=== PATIENT | male | born 1950 | race Caucasian/White ===

== ENCOUNTER → 2019-12-27 | Outpatient (CLI) | payer OTHER ==
[2019-12-27 15:29] LABS: Basophils # (auto) 0 10 ^3/uL (0-0.2); Basophils % (auto) 0.6 % (0.0-2.0); Eosinophils # (auto) 0.1 10 ^3/uL (0-0.8); Eosinophils % (auto) 1.8 % (0.0-7.0); Hematocrit 44.4 % (41.0-53.0); Lymphocytes # (auto) 1.1 10 ^3/uL (0.4-5.4); Lymphocytes % (auto) 23.9 % (10.0-50.0); Mean Corpuscular Hemoglobin 39.3 pg (28.0-32.0); Mean Corpuscular Hgb Conc. 33.9 g/dL (32.0-36.0); Mean Corpuscular Volume 115.9 fL (80.0-100.0); Monocytes # (auto) 0.5 10 ^3/uL (0-1.3); Monocytes % (auto) 10.4 % (0.0-12.0); Neutrophils # (auto) 2.8 10 ^3/uL (1.6-8.6); Neutrophils % (auto) 63.3 % (37.0-80.0); Nucleated Red Blood Cells % 0.2 %; Platelet Count (auto) 167 10^3/uL (140-450); Red Blood Cells 3.83 10^6/uL (4.5-5.90); Red Cell Distribution Width 14.1 % (11.8-14.3); White Blood Cell 4.5 10^3/uL (4.4-10.8)
[2019-12-27 15:48] LABS: Albumin 3.6 g/dL (3.4-5.0); Calcium 9.5 mg/dL (8.5-10.1); Potassium 3.9 mmol/L (3.5-5.1)
[2019-12-27 15:52] LABS: BUN/Creatinine Ratio 10.6; Bilirubin, Total 0.9 mg/dL (0.2-1.0); Total Protein 7.7 g/dL (6.4-8.2)
== END | disposition home or self-care (01) ==
LOC: EDSEX 14:40 → LAB 14:40
PROVIDERS: ATTEND Internal Medicine
DX: Z12.11 Encounter for screening for malignant neoplasm of colon (principal); I10 Essential (primary) hypertension; R60.9 Edema, unspecified; Z12.5 Encounter for screening for malignant neoplasm of prostate
CPT/HCPCS: 36415; 80053; 80061; 83036; 83880; 84153; 85025

== ENCOUNTER → 2020-01-13 | Outpatient (CLI) | payer OTHER ==
[2020-01-16 09:54] LABS: Hepatitis A Ab IgM Negative; Hepatitis B Core IgM Negative; Hepatitis B Surface Antigen Negative (Negative)
[2020-01-16 09:55] LABS: Hepatitis C Antibody Negative (Negative)
== END | disposition home or self-care (01) ==
LOC: LAB 11:26
PROVIDERS: ATTEND Internal Medicine
DX: R94.5 Abnormal results of liver function studies (principal)
CPT/HCPCS: 36415; 80074

== ENCOUNTER → 2020-05-24 | Outpatient (CLI) | payer OTHER ==
[2020-05-24 13:16] LABS: Basophils # (auto) 0 10 ^3/uL (0-0.2); Basophils % (auto) 0.6 % (0.0-2.0); Eosinophils # (auto) 0.1 10 ^3/uL (0-0.8); Eosinophils % (auto) 2.4 % (0.0-7.0); Hematocrit 41.8 % (41.0-53.0); Hemoglobin 14.2 g/dL (13.5-17.5); Lymphocytes # (auto) 1.1 10 ^3/uL (0.4-5.4); Mean Corpuscular Hemoglobin 31.6 pg (28.0-32.0); Mean Corpuscular Hgb Conc. 33.9 g/dL (32.0-36.0); Mean Corpuscular Volume 93.5 fL (80.0-100.0); Monocytes # (auto) 0.4 10 ^3/uL (0-1.3); Monocytes % (auto) 7.4 % (0.0-12.0); Neutrophils # (auto) 4.1 10 ^3/uL (1.6-8.6); Neutrophils % (auto) 70.6 % (37.0-80.0); Platelet Count (auto) 301 10^3/uL (140-450); Red Blood Cells 4.48 10^6/uL (4.5-5.90); Red Cell Distribution Width 13.7 % (11.8-14.3); White Blood Cell 5.8 10^3/uL (4.4-10.8)
[2020-05-24 13:18] LABS: Urine Blood Negative /uL (Negative); Urine Specific Gravity 1.021 (1.001-1.035)
[2020-05-24 13:38] LABS: INR 0.96 (0.9-1.15); Partial Thromboplastin Time 24.8 sec (23.64-32.05)
[2020-05-24 13:43] LABS: Albumin 3.4 g/dL (3.4-5.0); Calcium 8.8 mg/dL (8.5-10.1); Potassium 3.6 mmol/L (3.5-5.1)
[2020-05-24 13:48] LABS: BUN/Creatinine Ratio 10.2; Bilirubin, Total 0.4 mg/dL (0.2-1.0); Total Protein 7.1 g/dL (6.4-8.2)
== END | disposition home or self-care (01) ==
LOC: LAB 13:04
PROVIDERS: ATTEND Internal Medicine
DX: Z01.818 Encounter for other preprocedural examination (principal); I10 Essential (primary) hypertension; E78.5 Hyperlipidemia, unspecified
CPT/HCPCS: 36415; 80053; 81003; 85025; 85610; 85730

== ENCOUNTER → 2020-08-23 | Outpatient (CLI) | payer OTHER | END | disposition home or self-care (01) | LOC: XYW 09:50 | PROVIDERS: ATTEND Internal Medicine | DX: I07.1 Rheumatic tricuspid insufficiency (principal); I10 Essential (primary) hypertension | CPT/HCPCS: 93306 ==

== ENCOUNTER 2023-09-25 23:38 | Inpatient (IN) | payer OTHER ==
[~2023-09-25] VITALS: Ht 175.3 cm; Wt 78.5 kg
[2023-09-26] VITALS (17 sets, daily range): BP systolic 108–144; BP diastolic 61–90; PULSE 62–91; RESP 12–20; TEMP 96–97.8; O2SAT 92–99
[2023-09-26] MEDS ORDERED: D5W/SOD CHLO 0.9% 1,000 ML IV SCH (06:00)
[2023-09-26 06:22] LABS: Basophils # (auto) 0 10 ^3/uL (0-0.2); Eosinophils # (auto) 0.1 10 ^3/uL (0-0.8); Lymphocytes # (auto) 0.6 10 ^3/uL (0.4-5.4); Mean Corpuscular Volume 107.4 fL (80.0-100.0); Monocytes # (auto) 0.4 10 ^3/uL (0-1.3); Neutrophils # (auto) 4.1 10 ^3/uL (1.6-8.6); Red Cell Distribution Width 14.3 % (11.8-14.3); White Blood Cell 5.2 10^3/uL (4.4-10.8)
[2023-09-26 06:25] LABS: Basophils % (auto) 0.5 % (0.0-2.0); Eosinophils % (auto) 1.8 % (0.0-7.0); Hematocrit 40.7 % (41.0-53.0); Hemoglobin 13.4 g/dL (13.5-17.5); Lymphocytes % (auto) 11.7 % (10.0-50.0); Mean Corpuscular Hemoglobin 35.3 pg (28.0-32.0); Mean Corpuscular Hgb Conc. 32.9 g/dL (32.0-36.0); Monocytes % (auto) 8.5 % (0.0-12.0); Neutrophils % (auto) 77.5 % (37.0-80.0); Nucleated Red Blood Cells % 0.1 %; Red Blood Cells 3.79 10^6/uL (4.5-5.90)
[2023-09-26 06:41] LABS: INR 1.07 (0.9-1.15); Partial Thromboplastin Time 28.5 SEC (24.5-34.5); Prothrombin Time 11.2 sec (9.3-11.8)
[2023-09-26 06:49] LABS: Alanine Aminotransferase 26 U/L (7-40); Albumin 3.7 g/dL (3.2-4.8); Alkaline Phosphatase 78 U/L (46-116); Anion Gap 13 (5-15); Aspartate Aminotransferase 49 U/L (13-40); BUN/Creatinine Ratio 8.5 (10.0-20.0); Bilirubin, Total 1.5 mg/dL (0.2-1.0); Blood Urea Nitrogen 12 mg/dL (9-23); Calcium 8.8 mg/dL (8.7-10.4); Carbon Dioxide 20 mmol/L (20-30); Chloride 108 mmol/L (98-107); Glucose 108 mg/dL (74-106); Magnesium 2.2 mg/dL (1.6-2.6); Potassium 3.6 mmol/L (3.5-5.1); Sodium 141 mmol/L (136-145); Total Protein 5.9 g/dL (5.7-8.2)
[2023-09-26] MEDS ORDERED: MORPHINE SULFATE INJ 2 MG/ml SYRG IV PRN (07:30)
[2023-09-26] MEDS ORDERED: SOD CHL 0.45% 1,000 ML IV SCH (07:30)
[2023-09-26] MEDS ORDERED: ONDANSETRON HCL 4 MG/2 ML VIAL IV PRN (07:30)
[2023-09-26] MEDS ORDERED: ACETAMINOPHEN 325 MG TAB PO PRN (07:30)
[2023-09-26] MEDS ORDERED: NITROGLYCERIN 0.4 MG SL TAB SL PRN (07:30)
[2023-09-26] MEDS ORDERED: DOCUSATE SOD 100 MG CAP PO PRN (07:30)
[2023-09-26] MEDS: OCTREOTIDE ACETATE 500 MCG in SODIUM CHL 0.9% 99 ML IV SCH ×2 (09:08→15:28)
[2023-09-26] MEDS: PANTOPRAZOLE 40mg/50ML NS AE 50 ML IV SCH ×4 (10:10→20:43)
[2023-09-26] MEDS: SODIUM CHLORIDE 0.9% 1,000 ML IV SCH (14:20)
[2023-09-26] MEDS: chlordiazePOXIDE HCL 25 MG CAP PO SCH ×2 (14:20→21:22)
[2023-09-26 16:22] LABS: Amphetamine Screen, Urine Pos (NEGATIVE); Barbiturate Scree,Urine Neg (NEGATIVE); Benzodiazephine Screen, Urine Neg (NEGATIVE); Cannabinoid Screen, Urine Neg (NEGATIVE); Cocaine Screen, Urine Neg (NEGATIVE); Opiate Scree,Urine Neg (NEGATIVE); Phencyclidine Screen, Urine Neg (NEGATIVE)
[2023-09-27] MEDS: SODIUM CHLORIDE 0.9% 1,000 ML IV SCH ×3 (00:15→22:26)
[2023-09-27] MEDS: PANTOPRAZOLE 40mg/50ML NS AE 50 ML IV SCH ×5 (01:55→22:25)
[2023-09-27] MEDS: OCTREOTIDE ACETATE 500 MCG in SODIUM CHL 0.9% 99 ML IV SCH ×3 (01:56→22:25)
[2023-09-27] MEDS: chlordiazePOXIDE HCL 25 MG CAP PO SCH (06:25)
[2023-09-27 07:54] LABS: Basophils # (auto) 0 10 ^3/uL (0-0.2); Eosinophils # (auto) 0.1 10 ^3/uL (0-0.8); Hematocrit 36.4 % (41.0-53.0); Lymphocytes # (auto) 0.4 10 ^3/uL (0.4-5.4); Monocytes # (auto) 0.3 10 ^3/uL (0-1.3); Red Blood Cells 3.41 10^6/uL (4.5-5.90); Red Cell Distribution Width 14.1 % (11.8-14.3); White Blood Cell 3.8 10^3/uL (4.4-10.8)
[2023-09-27 07:57] LABS: Basophils % (auto) 0.6 % (0.0-2.0); Eosinophils % (auto) 2.7 % (0.0-7.0); Hemoglobin 12.1 g/dL (13.5-17.5); Lymphocytes % (auto) 11.8 % (10.0-50.0); Mean Corpuscular Hemoglobin 35.6 pg (28.0-32.0); Mean Corpuscular Hgb Conc. 33.4 g/dL (32.0-36.0); Mean Corpuscular Volume 106.7 fL (80.0-100.0); Monocytes % (auto) 6.8 % (0.0-12.0); Neutrophils # (auto) 2.9 10 ^3/uL (1.6-8.6); Neutrophils % (auto) 78.1 % (37.0-80.0); Nucleated Red Blood Cells % 0.3 %
[2023-09-27 08:08] LABS: Alanine Aminotransferase 22 U/L (7-40); Albumin 3.1 g/dL (3.2-4.8); Alkaline Phosphatase 62 U/L (46-116); Anion Gap 10 (5-15); Aspartate Aminotransferase 43 U/L (13-40); BUN/Creatinine Ratio 6.8 (10.0-20.0); Bilirubin, Total 0.8 mg/dL (0.2-1.0); Blood Urea Nitrogen 7 mg/dL (9-23); Calcium 8.4 mg/dL (8.5-10.1); Carbon Dioxide 22 mmol/L (20-30); Chloride 110 mmol/L (98-107); Glucose 88 mg/dL (74-106); Potassium 3.8 mmol/L (3.5-5.1); Sodium 142 mmol/L (136-145)
[2023-09-27 09:00] VITALS: BP 111/68; PULSE 65; RESP 16; TEMP 98.2; O2SAT 94
[2023-09-27 13:00] VITALS: BP 111/76; PULSE 78; RESP 16; TEMP 97.7; O2SAT 92
[2023-09-27] MEDS: HYDROcodone-ACET 5/325MG TAB PO PRN (13:45)
[2023-09-27] MEDS: FOLIC ACID 1 MG, MULTIPLE VITAMIN 10 ML, MAGNESIUM SULF SDV 50% 8 MEQ, THIAMINE INJ 100... INJ SCH ×5 (14:07)
[2023-09-27 17:00] VITALS: BP 117/77; PULSE 75; RESP 18; TEMP 98.3; O2SAT 93
[2023-09-27 22:23] VITALS: BP 107/71; PULSE 78; RESP 18; TEMP 97.8; O2SAT 90
[2023-09-28] MEDS: PANTOPRAZOLE 40mg/50ML NS AE 50 ML IV SCH ×5 (03:30→22:54)
[2023-09-28 05:24] VITALS: BP_SYST 110; BP_SYST 132; BP_DIAS 63; BP_DIAS 80; PULSE 73; PULSE 75; RESP 18; RESP 20; TEMP 97.7; TEMP 97.8; O2SAT 94
[2023-09-28] MEDS: SODIUM CHLORIDE 0.9% 1,000 ML IV SCH ×2 (06:15→09:00)
[2023-09-28 08:30] VITALS: PULSE 76; RESP 18; O2SAT 92
[2023-09-28 09:00] VITALS: BP 129/88; PULSE 76; RESP 18; TEMP 98.4; O2SAT 92
[2023-09-28] MEDS: HYDROcodone-ACET 5/325MG TAB PO PRN ×2 (09:00→17:12)
[2023-09-28] MEDS: OCTREOTIDE ACETATE 500 MCG in SODIUM CHL 0.9% 99 ML IV SCH ×2 (09:33→19:38)
[2023-09-28 13:00] VITALS: BP 138/87; PULSE 73; RESP 19; TEMP 97.8; O2SAT 96
[2023-09-28] MEDS: FOLIC ACID 1 MG, MULTIPLE VITAMIN 10 ML, MAGNESIUM SULF SDV 50% 8 MEQ, THIAMINE INJ 100... INJ SCH ×5 (13:17)
[2023-09-28 20:00] VITALS: PULSE 61; RESP 16; O2SAT 92
[2023-09-28 22:00] VITALS: BP 124/69; PULSE 61; RESP 16; TEMP 97.8; O2SAT 92
[2023-09-29] VITALS (8 sets, daily range): BP systolic 127–132; BP diastolic 61–86; PULSE 50–89; RESP 16–22; TEMP 97.5–98.1; O2SAT 90–96
[2023-09-29] MEDS: HYDROcodone-ACET 5/325MG TAB PO PRN ×5 (00:48→23:45)
[2023-09-29] MEDS: SODIUM CHLORIDE 0.9% 1,000 ML IV SCH ×3 (02:15→22:12)
[2023-09-29] MEDS: OCTREOTIDE ACETATE 500 MCG in SODIUM CHL 0.9% 99 ML IV SCH ×2 (04:06→15:54)
[2023-09-29] MEDS: PANTOPRAZOLE 40mg/50ML NS AE 50 ML IV SCH ×4 (04:06→22:12)
[2023-09-29] MEDS: FOLIC ACID 1 MG, MULTIPLE VITAMIN 10 ML, MAGNESIUM SULF SDV 50% 8 MEQ, THIAMINE INJ 100... INJ SCH ×5 (12:33)
[2023-09-29] MEDS ORDERED: FOLI-119 PO (12:37)
[2023-09-29] MEDS ORDERED: THIA100T13 PO (12:37)
[2023-09-29] MEDS ORDERED: SUCR1TAB22 OR (12:37)
[2023-09-29] MEDS ORDERED: PANT40T PO (12:37)
[2023-09-29] MEDS ORDERED: CHL25C PO (12:37)
[2023-09-30] MEDS: PANTOPRAZOLE 40mg/50ML NS AE 50 ML IV SCH ×3 (03:00→10:01)
[2023-09-30] MEDS: OCTREOTIDE ACETATE 500 MCG in SODIUM CHL 0.9% 99 ML IV SCH ×3 (03:24)
[2023-09-30 05:00] VITALS: BP 123/74; PULSE 65; RESP 16; TEMP 98.1; O2SAT 95
[2023-09-30] MEDS: HYDROcodone-ACET 5/325MG TAB PO PRN (05:59)
[2023-09-30 08:30] VITALS: PULSE 99; RESP 17; O2SAT 95
[2023-09-30 09:00] VITALS: BP 135/80; PULSE 99; RESP 17; TEMP 97.8; O2SAT 95
[2023-09-30] MEDS: SODIUM CHLORIDE 0.9% 1,000 ML IV SCH (09:56)
[2023-09-30 13:00] VITALS: BP 148/78; PULSE 65; RESP 16; TEMP 97.8; O2SAT 97
== END 2023-09-30 15:15 | disposition home or self-care (01) | DRG 378 ==
LOC: DOU IN ICU 09-26 04:25 → WEST WING 09-26 21:00
PROVIDERS: ADMIT Nurse Practitioner Family; ATTEND Family Medicine
DX: K92.0 Hematemesis (principal); F10.239 Alcohol dependence with withdrawal, unspecified; N17.9 Acute kidney failure, unspecified; Z59.00 Homelessness unspecified; F10.229 Alcohol dependence with intoxication, unspecified; F41.9 Anxiety disorder, unspecified; Z71.41 Alcohol abuse counseling and surveillance of alcoholic; F15.10 Other stimulant abuse, uncomplicated
CPT/HCPCS: 36415; 70450; 74176; 80053; 80307; 80320; 83735; 85025; 85610; 85730; 87081; G0378

== ENCOUNTER → 2025-01-23 | Outpatient (CLI) | payer OTHER ==
[~2025-01-23] MED LIST: CHL25C PO; FOLI-119 PO; PANT40T PO; SUCR1TAB31 OR; THIA100T13 PO
[2025-01-23 10:24] LABS: Basophils # (auto) 0 10 ^3/uL (0-0.2); Basophils % (auto) 0.6 % (0.0-2.0); Eosinophils # (auto) 0.1 10 ^3/uL (0-0.8); Eosinophils % (auto) 2.5 % (0.0-7.0); Hematocrit 43.5 % (41.0-53.0); Hemoglobin 14.9 g/dL (13.5-17.5); Lymphocytes % (auto) 26.7 % (10.0-50.0); Mean Corpuscular Hemoglobin 33.9 pg (28.0-32.0); Mean Corpuscular Hgb Conc. 34.2 g/dL (32.0-36.0); Mean Corpuscular Volume 99.1 fL (80.0-100.0); Monocytes # (auto) 0.3 10 ^3/uL (0-1.3); Monocytes % (auto) 9.2 % (0.0-12.0); Neutrophils # (auto) 2.3 10 ^3/uL (1.6-8.6); Platelet Count (auto) 218 10^3/uL (140-450); Red Blood Cells 4.39 10^6/uL (4.5-5.90); Red Cell Distribution Width 13.5 % (11.8-14.3); White Blood Cell 3.7 10^3/uL (4.4-10.8)
== END | disposition home or self-care (01) ==
LOC: LAB 10:05
PROVIDERS: ATTEND Internal Medicine
DX: Z12.11 Encounter for screening for malignant neoplasm of colon (principal); D72.819 Decreased white blood cell count, unspecified; Z79.899 Other long term (current) drug therapy
CPT/HCPCS: 36415; 84153; 85025